=== PATIENT | male | born 1980 | race Caucasian/White ===

== ENCOUNTER 2023-05-18 23:36 | Emergency (ER) | payer SELFPAY ==
[2023-05-18 23:37] VITALS: BP 151/98; PULSE 102; RESP 22; TEMP 38.4; O2SAT 93; BMI 51.7
--- NOTE | 2023-05-18 23:48 | XRR_ITS ---
PROCEDURE INFORMATION: Exam: XR Chest Exam date and time: 05/19/2023 12:20 AM Age: 43 years old Clinical indication: Cough and fever; Patient HX: Semi upright and supine images sent; Additional info: Fever cough TECHNIQUE: Imaging protocol: Radiologic exam of the chest. Views: 1 view. COMPARISON: No relevant prior studies available. FINDINGS: Lungs: There is pulmonary venous distension. No convincing airspace disease. Pleural spaces: No pleural effusion. No pneumothorax. Heart/Mediastinum: Enlarged cardiac silhouette. Bones/joints: Age appropriate. XR/XR chest 1V portable [id number] IMPRESSION: Enlarged cardiac silhouette with pulmonary venous distension. No convincing airspace disease.
[2023-05-18 23:57] LABS: Basophils % 0.5 %; Hematocrit 50.1 % (37-53); Lymphocytes # 1.9 10^3/uL (0.8-4.8); Lymphocytes % 31.4 %; Mean Corpuscular HGB Conc 33.3 g/dL (30-55); Mean Corpuscular Volume 92.9 fl (82-101); Mean Platelet Volume 10.3 fL (7.4-10.4); Monocytes # 0.8 10^3/uL (0.2-0.9); Monocytes % 12.6 %; Neutrophils # 3.32 10^3/uL (1.8-7.7); Neutrophils % 55.2 %; Nucleated Red Blood Cells % 0 %; Platelet Count 283 10^3/cmm (157-399); Red Blood Count 5.39 10^6/uL (3.85-5.65); Red Cell Distribution Width 14.5 % (12.1-15.1); White Blood Count 6.02 10^3/uL (3.29-11.43)
--- NOTE | 2023-05-19 00:11 | ED_ITS ---
HPI - Fever 2 General: Stated Complaint: N/V Time Seen by Provider: 05/18/23 23:48 History of Present Illness: Patient presents to the ER with flulike symptoms. Patient states been going on for about 4 days. Patient's temperature was 100.6 orally is coughing with shortness of breath. He is 93 to 96% on room air. Patient has been around sick contacts his sister and his nephew have influenza A. Patient is taken nothing for his fever. Review of Systems 2 General: Reports: 10 or more systems reviewed and unremarkable except in HPI and below Physical Exam 2 Const: COMMON NORMALS: no acute distress, average body habitus, patient oriented x3, no limitations, healthy appearing, alert and well nourished HENMT: COMMON NORMALS: normocephalic, atraumatic, hearing grossly normal bilaterally, external ears normal, EAC's normal, Normal external nose present, moist oral mucous membranes and oropharynx normal HEAD & SCALP: normocephalic and atraumatic NOSE: Normal external nose present EXTERNAL EAR: Yes external ears normal EXTERNAL AUDITORY CANAL: EAC's normal Neck/C-Spine: COMMON NORMALS: no JVD Chest: COMMONS NORMALS: normal inspection of the chest and normal palpation of entire chest wall Resp: COMMON NORMALS: normal respiratory effort, No retractions, No use of accessory muscles and clear to auscultation bilaterally AUSCULTATION: clear to auscultation bilaterally Cardio: COMMON NORMALS: no JVD, regular rate, regular rhythm, S1 normal heart sound present, S2 normal heart sound present, No gallops present (Cardio), No clicks present (Cardio), No murmurs present (Cardio) and No rub (Cardio) R ATE: regular rate RHYTHM: regular rhythm HEART SOUNDS: S1 normal heart sound present and S2 normal heart sound present GI: COMMON NORMALS: Normal to inspection, nondistended, normoactive bowel sounds present, Soft to palpation, non-tender, No hepatosplenomegaly present and no masses PALPATION: Yes Soft to palpation and Yes No hepatosplenomegaly present Neuro: COMMON NORMALS: patient oriented x3 SENSORIUM/ORIENTATION: Yes alert Course 2 Vital Signs: Vital signs: Vital Signs Temperature 101.2 F H 05/19/23 01:15 Pulse Rate 102 H 05/19/23 01:15 Respiratory Rate 22 H 05/19/23 01:15 Blood Pressure 151/98 05/19/23 01:15 Pulse Oximetry 93 05/19/23 01:15 Oxygen Delivery Me thod Room Air 05/18/23 23:37 MDM - Fever Medical Decision Making Lab work was obtained that included respiratory swabs. Influenza A was positive patient had elevated liver enzyme of AST 123 and ALT 67 patient was given 1 g of Tylenol p.o. for his fever. These results was discussed with the patient. Patient be discharged home. Differential Diagnosis Unlikely abdominal pain, acute appendicitis, calculus of kidney, constipation, diverticulitis, endometriosis, gastroenteritis, pancreatitis or small bowel obstruction Medical Records I reviewed the patient's medical records. Lab Data I reviewed the patient's lab results. 05/18/23 23:35 05/18/23 23:35 Radiology Impressions Chest X-Ray 05/18/23 23:48 IMPRESSION: Enlarged cardiac silhouette with pulmonary venous distension. No convincing airspace disease. Laboratory Results WBC 6.02 10^3/uL (3.29-11.43) 05/18/23 23:35 RBC 5.39 10^6/uL (3.85-5.65) 05/18/23 23:35 Hgb 16.70 g/dL (11.27-16.99) 05/18/23 23:35 Hct 50.1 % (37-53) 05/18/23 23:35 MCV 92.9 fl (82-101) 05/18/23 23:35 MCH 31.0 pg (27-33) 05/18/23 23:35 MCHC 33.3 g/dL (30-55) 05/18/23 23:35 RDW 14.5 % (12.1-15.1) 05/18/23 23:35 Plt Count 283 10^3/cmm (157-399) 05/18/23 23:35 MPV 10.3 fL (7.4-10.4) 05/18/23 23:35 Neut % (Auto) 55.2 % 05/18/23 23:35 Lymph % (Auto) 31.4 % 05/18/23 23:35 [place] % (Auto) 12.6 % 05/18/23 23:35 Eos % (Auto) 0.0 % 05/18/23 23:35 Baso % (Auto) 0.5 % 05/18/23 23:35 Neut # (Auto) 3.32 10^3/uL (1.8-7.7) 05/18/23 23:35 Lymph # (Auto) 1.9 10^3/uL (0.8-4.8) 05/18/23 23:35 [place] # (Auto) 0.8 10^3/uL (0.2-0.9) 05/18/23 23:35 Eos # (Auto) 0.0 10^3/uL (0.0-0.8) 05/18/23 23:35 Baso # (Auto) 0.0 10^3/uL (0.0-0.1) 05/18/23 23:35 Nucleated RBC % (auto) 0 % 05/18/23 23:35 Nucleated RBCs # 0.0 /100WBC 05/18/23 23:35 Sodium 128 mmol/L (136-145) L 05/18/23 23:35 Potassium 4.6 mmol/L (3.5-5.1) 05/18/23 23:35 Chloride 90 mmol/L (98-107) L 05/18/23 23:35 Carbon Dioxide 28 mmol/L (22-29) 05/18/23 23:35 Anion Gap 14.6 (5-19) 05/18/23 23:35 BUN 12 mg/dL (6-20) 05/18/23 23:35 Creatinine 0.8 mg/dL (0.7-1.2) 05/18/23 23:35 GFR Calculation 106.5 mL/min (90-130) 05/18/23 23:35 Glucose 107 mg/dL (65-115) 05/18/23 23:35 Calculated Osmolality 266 mOsm/kg (285-295) L 05/18/23 23:35 Calcium 7.9 mg/dL (8.5-10.5) L 05/18/23 23:35 Total Bilirubin 0.4 mg/dL (0.15-1.2) 05/18/23 23:35 AST 123 U/L (0-40) H 05/18/23 23:35 ALT 67 U/L (0-41) H 05/18/23 23:35 Alkaline Phosphatase 93 U/L (40-130) 03/01/24 23:35 Total Protein 7.5 g/dL (6.6-8.7) 05/18/23 23:35 Albumin 3.4 g/dL (3.5-5.2) L 05/18/23 23:35 Globulin 4.1 g/dL (1.3-4.6) 05/18/23 23:35 Influenza Type A Ag positive (Negative) H 05/19/23 00:05 Influenza Type B Ag negative (Negative) 05/19/23 00:05 SARS-CoV-2 Ag (Rapid) negative (Negative) 05/19/23 00:05 All radiology interpretation(s) finalized by discharge Discharge Plan Discharge Patient Disposition: Home Clinical Impression: Influenza A, Elevated liver enzymes Fever Qualifiers: Fever type: unspecified Qualified Code(s): R50.9 - Fever, unspecified Condition: Stable Discharge Orders: Discharge ED (Routine); Ordered 05/19/23 Ordered By: Rmaón Block Patient Instructions: Fever - Adult, Influenza (ED) Activity Restrictions/Additional Instructions: Your results in ER came back positive for influenza A and elevated liver enzymes. Please continue take Tylenol and Motrin [id number] as directed for your fever and bodyaches. Please follow-up with your family practice physician within the next 7 days to have your liver rechecked. Coding Level of Care Code ED Canopy Inspector for Brando Alexander
[2023-05-19 00:22] LABS: Alanine Aminotransferase 67 U/L (0-41); Albumin Level 3.4 g/dL (3.5-5.2); Alkaline Phosphatase 93 U/L (40-130); Anion Gap 14.6 (5-19); Aspartate Amino Transferase 123 U/L (0-40); Blood Urea Nitrogen 12 mg/dL (6-20); Calcium 7.9 mg/dL (8.5-10.5); Carbon Dioxide 28 mmol/L (22-29); Chloride 90 mmol/L (98-107); Creatinine Clr Calc Pharmacy 176.5644; Globulin 4.1 g/dL (1.3-4.6); Glomerular Filtration Rate 106.5 mL/min (90-130); Glucose 107 mg/dL (65-115); Osmolality Calculated 266 mOsm/kg (285-295); Potassium 4.6 mmol/L (3.5-5.1); Sodium 128 mmol/L (136-145); Total Bilirubin 0.4 mg/dL (0.15-1.2); Total Protein 7.5 g/dL (6.6-8.7)
[2023-05-19] MEDS: acetaminophen 500 mg Tablet 1000 MG PO (00:30)
[2023-05-19 00:50] LABS: Influenza A by IFA positive (Negative); Influenza B by IFA negative (Negative); SARS Covid-2 Antigen negative (Negative)
[2023-05-19 01:15] VITALS: BP 151/98; PULSE 102; RESP 22; TEMP 38.4; O2SAT 93
== END 2023-05-19 01:16 | disposition home or self-care (01) ==
PROVIDERS: Emergency Provider Emergency Medicine
DX: J10.1 Influenza due to other identified influenza virus with other respiratory manifestations (principal); R74.8 Abnormal levels of other serum enzymes; Z11.52 Encounter for screening for COVID-19
CPT/HCPCS: 71045; 80053; 85025; 87426; 87804; 99284

== ENCOUNTER → 2025-02-10 11:42 | Outpatient (BNVA) | payer BC, SELFPAY | PROVIDERS: PCP Nurse Practitioner Family; Visit Provider Nurse Practitioner Family | DX: R30.0 Dysuria (principal); I10 Essential (primary) hypertension; E66.01 Morbid (severe) obesity due to excess calories; F10.21 Alcohol dependence, in remission | CPT/HCPCS: 80053; 80061; 82247; 82248; 85025; G0103 ==

== ENCOUNTER 2025-02-18 17:05 | Emergency (ER) | payer BC, MEDICAID, SELFPAY ==
[2025-02-18 17:10] VITALS: BP 130/82; PULSE 78; RESP 17; TEMP 36.3; O2SAT 93; BMI 54.7
--- NOTE | 2025-02-18 17:26 | PC.NURSE ---
pt provided with urinal, educated on need for UA. pt states might be awhile, but he will pee
[2025-02-18 17:33] VITALS: BP 136/86
--- NOTE | 2025-02-18 17:33 | USR_ITS ---
PROCEDURE INFORMATION: Exam: US Scrotum Exam date and time: 02/18/2025 5:45 PM Age: 44 years old Clinical indication: Scrotum pain TECHNIQUE: Imaging protocol: Real-time ultrasound of the scrotum and contents with color Doppler and image documentation. COMPARISON: No relevant prior studies available. FINDINGS: Limitations: Technologist notes technically difficult study due to extreme body habitus and patient movement. Unable to obtain both testicles in the same view due to body habitus/movement. Right testicle: Right testicle measures 3.7 x 2.3 x 3.3 cm with a volume of 14.6 mL. Homogeneous echotexture without nodule or mass. Right testicular arterial and venous flow is seen. Left testicle: Left testicle measures 4.1 x 2.8 x 3.3 cm with a volume 19.7 mL. Homogeneous echotexture without nodule or mass. Left testicular arterial and venous flow is seen. Epididymides: Right epididymis measures 1.7 x 1.2 x 1.7 cm and demonstrates heterogeneous echotexture. Mild increased flow. A 1.3 x 1 x 1 cm anechoic focus is seen adjacent to the right testicle. Left epididymis measures 1.6 x 1.4 x 1.6 cm and demonstrates heterogeneous echotexture with anechoic focus of 1.3 x 0.8 x 1.3 cm. Scrotum/soft tissues: No hydrocele. US/US scrotum [id number] IMPRESSION: 1. Testicles appear unremarkable bilaterally and with bilateral testicular flow. 2. Bilateral cystic foci in association with the epididymis or adjacent to the testicle could indicate epididymal cyst or spermatocele. 3. Mildly prominent and mildly heterogeneous epididymides and considered the possibility of epididymitis. 4. No hydrocele.
[2025-02-18 17:43] LABS: Hematocrit 51.6 % (37-53); Hemoglobin 17.30 g/dL (11.27-16.99); Mean Corpuscular HGB Conc 33.5 g/dL (30-55); Mean Corpuscular Hemoglobin 31.3 pg (27-33); Mean Corpuscular Volume 93.3 fl (82-101); Nucleated Red Blood Cells % 0 %; Platelet Count 229 10^3/cmm (157-399); Red Blood Count 5.53 10^6/uL (3.85-5.65); White Blood Count 7.14 10^3/uL (3.29-11.43)
[2025-02-18 17:56] LABS: Alanine Aminotransferase 32 U/L (0-41); Albumin Level 3.8 g/dL (3.5-5.2); Alkaline Phosphatase 86 U/L (40-130); Anion Gap 12.7 (5-19); Aspartate Amino Transferase 33 U/L (0-40); Blood Urea Nitrogen 14 mg/dL (6-20); Calcium 9.0 mg/dL (8.5-10.5); Carbon Dioxide 27 mmol/L (22-29); Chloride 103 mmol/L (98-107); Globulin 3.8 g/dL (1.3-4.6); Glucose 110 mg/dL (65-115); Osmolality Calculated 287 mOsm/kg (285-295); Potassium 4.7 mmol/L (3.5-5.1); Sodium 138 mmol/L (136-145); Total Protein 7.6 g/dL (6.6-8.7)
--- NOTE | 2025-02-18 17:57 | ED_ITS ---
HPI - Male Genitourinary 2 General: Chief complaint: Urogenital-Male Stated complaint: Flank/abd pain Time Seen by Provider: 02/18/25 17:06 History of Present Illness: 44-year-old male presents emergency room with complaints of dysuria and testicular pain. The testicular pain has been going on for a year he was seen earlier in the week at [facility] and started on oral antibiotics for bladder infection he insisted to the jailers that he be reevaluated. Fever sweats chills no vomiting or diarrhea. Associated symptoms: Reports dysuria Related Data Previous Rx's ?Medication ?Instructions ?Recorded lisinopril 20 mg tablet 20 mg PO DAILY #30 tabs 01/18 08/10 diclofenac sodium 75 mg 75 mg PO Q12H PRN pain #20 t abs 02/18/25 tablet,delayed release Allergies Allergy/AdvReac Type Severity Reaction Status Date / Time No Known Allergies Allergy Verified 02/10/25 11:16 Review of Systems 2 Const: Denies: fever(s) or chills Card: Denies: chest pain Resp: Denies: dyspnea GI: Reports: abdominal pain : Reports: flank pain, dysuria, urinary frequency, urinary urgency and testicular pain Musc: Denies: neck pain or back pain Skin/Breast: Denies: rash PFSH ED 2 PFSH: Social History Smoking and tobacco/nicotine status: never used tobacco/nicotine Alcohol intake: former Substance/Drug Use: former Physical Exam 2 Const: GENERAL APPEARANCE: cooperative ORIENTATION/CONSCIOUSNESS: Yes awake, Yes oriented to person, Yes oriented to place and Yes oriented to time HENMT: COMMON NORMALS: normocephalic, atraumatic and hearing grossly normal bilaterally HEAD & SCALP: normocephalic and atraumatic Resp: COMMON NORMALS: normal respiratory effort, No retractions, No use of accessory muscles and clear to auscultation bilaterally AUSCULTATION: clear to auscultation bilaterally Cardio: COMMON NORMALS: regular rate, regular rhythm and No murmurs present (Cardio) RATE: regular rate RHYTHM: regular rhythm GI: COMMON NORMALS: Soft to palpation and No hepatosplenomegaly present A USCULTATION: Yes normoactive bowel sounds PALPATION: Yes Soft to palpation, No Tenderness to palpation present (GI), No Guarding due to palpation present (GI) and Yes No hepatosplenomegaly present Extremity: COMMON NORMALS: normal to inspection, capillary refill normal, no clubbing, cyanosis or edema, no calf tenderness and no pedal edema Neuro: SENSORIUM/ORIENTATION: Yes oriented to person, Yes oriented to place and Yes oriented to time Skin: COMMON NORMALS: no rashes or lesions noted GENERAL SKIN EXAM: no rashes or lesions noted Course 2 Vital Signs: Vital signs: Vital Signs Temperature 97.4 F L 02/18/25 17:10 Pulse Rate 96 02/18/25 19:46 Respiratory Rate 17 02/18/25 17:10 Blood Pressure 140/84 02/18/25 19:46 Pulse Oximetry 96 02/18/25 19:46 Oxygen Delivery Me thod Room Air 02/18/25 17:10 MDM - Male Medical Decision Making Medical decision making Social determinants: None I reviewed the patient's medical record. I reviewed the patient's current home meds. Alternate historians: None Differential diagnosis: Cystitis epididymitis testicular torsion Lab Review: CBC normal chemistry panel no significant abnormalities urine shows trace leukocyte esterase 6-10 white and 6-10 epithelial cells. Imaging: Scrotal ultrasound shows epididymitis Assessment of risk Level of risk: Low Hospitalization considerations: No indication for hospitalization Reexamination: Improved Assessment and plan: Patient previously prescribed ciprofloxacin at a visit at another facility. Recommend he continues and completes a course of ciprofloxacin can use Tylenol or ibuprofen for pain and follow-up with his primary care doctor Lab Data 02/18/25 17:19 02/18/25 17:19 Radiology Impressions Scrotum Ultrasound 02/18/25 17:33 IMPRESSION: 1. Testicles appear unremarkable bilaterally and with bilateral testicular flow. 2. Bilateral cystic foci in association with the epididymis or adjacent to the testicle could indicate epididymal cyst or spermatocele. 3. Mildly prominent and mildly heterogeneous epididymides and considered the possibility of epididymitis. 4. No hydrocele. Laboratory Results WBC 7.14 10^3/uL (3.29-11.43) 02/18/25 17:19 RBC 5.53 10^6/uL (3.85-5.65) 02/18/25 17:19 Hgb 17.30 g/dL (11.27-16.99) H 02/18/25 17:19 Hct 51.6 % (37-53) 02/18/25 17:19 MCV 93.3 fl (82-101) 02/18/25 17:19 MCH 31.3 pg (27-33) 02/18/25 17:19 MCHC 33.5 g/dL (30-55) 02/18/25 17:19 RDW 13.8 % (12.1-15.1) 02/18/25 17:19 Plt Count 229 10^3/cmm (157-399) 02/18/25 17:19 MPV 11.2 fL (7.4-10.4) H 02/18/25 17:19 Neut % (Auto) 47.0 % 02/18/25 17:19 Lymph % (Auto) 33.6 % 02/18/25 17:19 [place] % (Auto) 13.6 % 02/18/25 17:19 Eos % (Auto) 4.9 % 02/18/25 17:19 Baso % (Auto) 0.8 % 02/18/25 17:19 Neut # (Auto) 3.35 10^3/uL (1.8-7.7) 02/18/25 17:19 Lymph # (Auto) 2.4 10^3/uL (0.8-4.8) 02/18/25 17:19 [place] # (Auto) 1.0 10^3/uL (0.2-0.9) H 02/18/25 17:19 Eos # (Auto) 0.4 10^3/uL (0.0-0.8) 02/18/25 17:19 Baso # (Auto) 0.1 10^3/uL (0.0-0.1) 02/18/25 17:19 Nucleated RBC % (auto) 0 % 02/18/25 17:19 Nucleated RBCs # 0.0 /100WBC 02/18/25 17:19 Sodium 138 mmol/L (136-145) 02/18/25 17:19 Potassium 4.7 mmol/L (3.5-5.1) 02/18/25 17:19 Chloride 103 mmol/L (98-107) 02/18/25 17:19 Carbon Dioxide 27 mmol/L (22-29) 02/18/25 17:19 Anion Gap 12.7 (5-19) 02/18/25 17:19 BUN 14 mg/dL (6-20) 02/18/25 17:19 Creatinine 0.7 mg/dL (0.7-1.2) 02/18/25 17:19 GFR Calculation 123.7 mL/min (90-130) 02/18/25 17:19 Glucose 110 mg/dL (65-115) 02/18/25 17:19 Calculated Osmolality 287 mOsm/kg (285-295) 02/18/25 17:19 Calcium 9.0 mg/dL (8.5-10.5) 02/18/25 17:19 Total Bilirubin 0.5 mg/dL (0.15-1.2) 02/18/25 17:19 AST 33 U/L (0-40) 02/18/25 17:19 ALT 32 U/L (0-41) 02/18/25 17:19 Alkaline Phosphatase 86 U/L (40-130) 02/18/25 17:19 Total Protein 7.6 g/dL (6.6-8.7) 02/18/25 17:19 Albumin 3.8 g/dL (3.5-5.2) 02/18/25 17:19 Globulin 3.8 g/dL (1.3-4.6) 02/18/25 17:19 Urine Color [place] (Yellow) A 02/18/25 18: Urine Appearance Cloudy (CLEAR) A 02/18/25 18: Urine pH 5.5 (5-7) 02/18/25 18: Ur Specific [place] 1.040 (1.005-1.030) H 02/18/25 18: Urine Protein 1+ (Negative) A 02/18/25 18: Urine Glucose (UA) Negative (Normal) 02/18/25 18: Urine Ketones Trace (Negative) 02/18/25 18: Urine Blood Negative (Negative) 02/18/25 18: Urine Nitrate Negative (Negative) 02/18/25 18: Urine Bilirubin 1+ (Negative) H 02/18/25 18: Urine Urobilinogen 2.0 mg/dL (Negative) H 02/18/25 18:29 Ur Leukocyte Esterase Trace (Negative) A 02/18/25 18:29 Urine RBC 0-2 /hpf (0-2) 02/18/25 18:29 Urine WBC 6-10 /hpf (0-5) 02/18/25 18:29 Ur Squamous Epith Cells 6-10 /hpf (0-5) 02/18/25 18:29 Amorphous Sediment Not Reportable 02/18/25 18:29 Urine Bacteria None seen /hpf (NONE) 02/18/25 18:29 Hyaline Casts 28.94 /lpf 02/18/25 18:29 All radiology interpretation(s) finalized by discharge Discharge Plan Discharge Patient Disposition: Home Clinical Impression: Epididymitis Condition: Stable Prescriptions: New diclofenac sodium 75 mg tablet,delayed release (DR/EC) 75 mg PO Q12H PRN (Reason: pain) Qty: 20 0RF No Action lisinopril 20 mg tablet 20 mg PO DAILY Qty: 30 3RF Discharge Orders: Discharge ED (Routine); Ordered 02/18/25 Ordered By: Jasvir Dumont Referrals: Alfonso Parada FNP [Primary Care Provider, Family Practice] Discharge Diet: Usual diet Discharge Activity: Resume usual activity Patient Instructions: Opioid Safety, Pain Management, Patient Portal & Marisela Instructions Activity Restrictions/Additional Instructions: Thank you for choosing [facility] for your healthcare needs today. It is very important that you follow up as instructed or that you return to the Emergency Department should you have concerns or if your condition changes or worsens in any way. Emergency department visits are focused on emergent conditions, in some cases you may require further evaluation on an outpatient basis. You are seen emergency room with complaint of testicular pain ultrasound shows an epididymitis. You should continue the previously prescribed ciprofloxacin. Your urine was otherwise unremarkable and your white count was normal. No other findings noted on the ultrasound of the scrotum. You can also use diclofenac 1 every 12 hours as needed for discomfort. (Please note that included in your discharge packet is information concerning opioid safety and pain management. This information is given to all patients were discharged from the ER regardless of their discharge diagnosis or the medicines they usually take or are prescribed.) Print Language: Monegasque Coding Level of Care Code ED Medical Doctor Nuclear Medicine for Brando Alexander
[2025-02-18 18:42] LABS: Glucose Urine UA Negative (Normal); Nitrate Urine Negative (Negative)
[2025-02-18 18:54] LABS: Universal Test for UA Present (0)
[2025-02-18 18:57] LABS: Specific Gravity, Urine 1.040 (1.005-1.030)
[2025-02-18 18:58] LABS: Add Urine Microscopic? YES; Charge for UA Resulting for Rev
[2025-02-18 19:46] VITALS: BP 140/84; PULSE 96; O2SAT 96
== END 2025-02-18 19:51 | disposition home or self-care (01) ==
PROVIDERS: Emergency Provider Family Medicine; PCP Nurse Practitioner Family
DX: N45.1 Epididymitis (principal)
CPT/HCPCS: 36415; 76870; 80053; 81001; 81003; 85025; 99284

== ENCOUNTER 2025-03-08 15:47 | Emergency (ER) | payer BC, MEDICAID, SELFPAY ==
[2025-03-08 15:51] VITALS: BP 129/87; PULSE 101; RESP 20; TEMP 36.8; O2SAT 95; BMI 56.2
[2025-03-08 16:48] LABS: Glucose Urine UA 1+ (Normal); Nitrate Urine Negative (Negative)
[2025-03-08 16:51] LABS: Add Urine Microscopic? YES
[2025-03-08 17:11] LABS: Specific Gravity, Urine 1.031 (1.005-1.030)
--- NOTE | 2025-03-08 17:24 | W.ED.MALEGU ---
HPI - Male Genitourinary General: Chief complaint: Urogenital-Male Stated complaint: L side above Groan lump painful Time Seen by Provider: 03/08/25 16:33 History of Present Illness: Patient is a 44-year-old gentleman that comes in with a left groin abscess. This occurred after he was retained in [facility] for 2 days, and has worsened. He was seen at [facility], and was told he had a UTI, however where he was in the local [facility] they did not treat him. He has since been released to recovery program, and the area to his left groin has increased in size, and has associated pain, and purulent drainage. Associated symptoms: Reports dysuria Related Data Previous Rx's ?Medication ?Instructions ?Recorded lisinopril 20 mg tablet 20 mg PO DAILY #30 tabs 02/10/25 diclofenac sodium 75 mg 75 mg PO Q12H PRN pain #20 tabs 02/18/25 tablet,delayed release sulfamethoxazole 800 2 tab PO Q12H 10 days #40 tabs 03/08/25 mg-trimethoprim 160 mg tablet (Bactrim DS) Allergies Allergy/AdvReac Type Severity Reaction Status Date / Time No Known Allergies Allergy Verified 02/10/25 11:16 Review of Systems Const: Denies: fever(s) or chills Card: Denies: chest pain Resp: Denies: dyspnea GI: Reports: abdominal pain : Reports: flank pain, dysuria, urinary frequency, urinary urgency and testicular pain Musc: Denies: neck pain or back pain Skin/Breast: Denies: rash Neuro: Reports: headache(s) and numbness in extremities PFSH ED PFSH: Social History Smoking and tobacco/nicotine status: never used tobacco/nicotine Alcohol intake: former Substance/Drug Use: former Physical Exam Const: GENERAL APPEARANCE: cooperative ORIENTATION/CONSCIOUSNESS: Yes awake, Yes oriented to person, Yes oriented to place and Yes oriented to time HENMT: COMMON NORMALS: normocephalic, atraumatic and hearing grossly normal bilaterally HEAD & SCALP: normocephalic and atraumatic Lymph: LYMPHATIC: no lymphadenopathy noted Resp: COMMON NORMALS: normal respiratory effort, No retractions, No use of accessory muscles and clear to auscultation bilaterally AUSCULTATION: clear to auscultation bilaterally Cardio: COMMON NORMALS: regular rate, regular rhythm and No murmurs present (Cardio) RATE: regular rate RHYTHM: regular rhythm GI: COMMON NORMALS: Soft to palpation and No hepatosplenomegaly present AUSCULTATION: Yes normoactive bowel sounds PALPATION: Yes Soft to palpation, No Tenderness to palpation present (GI), No Guarding due to palpation present (GI) and Yes No hepatosplenomegaly present : COMMON NORMALS: Yes no CVA tenderness, Yes normal external exam and Yes Testes normal BLADDER/KIDNEY EXAM: Yes no CVA tenderness OTHER: Pannus, lower left groin, with induration, abscess area. There is surrounding redness extending through the lower pannus. His testicle and penis is spared. Back/Pelvis: COMMON NORMALS: no CVA tenderness Extremity: COMMON NORMALS: normal to inspection, capillary refill normal, no clubbing, cyanosis or edema, no calf tenderness and no pedal edema Neuro: SENSORIUM/ORIENTATION: Yes oriented to person, Yes oriented to place and Yes oriented to time Skin: COMMON NORMALS: no rashes or lesions noted GENERAL SKIN EXAM: no rashes or lesions noted Procedures Abscess I/D Site: abdomen Side (if applicable): left (groin, pannis) Sedation/analgesia: other Local Anesthetic: lidocaine 1% and with epi Amount of anesthesia used (mL): 10 Technique: incised with #11 blade Amount of fluid expressed (mL): 10 Irrigation: Yes Packing used?: none Complications: pain and bleeding Course Vital Signs: Vital signs: Vital Signs Temperature 98.3 F 03/08/25 15:51 Pulse Rate 104 H 03/08/25 17:26 Respiratory Rate 18 03/08/25 17:26 Blood Pressure 119/87 03/08/25 17:26 Pulse Oximetry 98 03/08/25 17:26 Oxygen Delivery Me thod Room Air 03/08/25 17:26 MDM - Male Medical Decision Making Patient is 44-year-old male comes in with abscess to left groin. This was drained and purulent production was received. This was a small amount of purulent production. All the area was probed. Plain gauze was unable to insert due to the small amount of area. There was surrounding redness to his lower pannus. Discussed with patient if this gets worse to return to the ED. He received Rocephin x 1 here, and MRSA coverage with Bactrim. Patient states understanding of groin care. Medical Records I reviewed the patient's medical records. Lab Data Laboratory Results Urine Color Dark yellow (Yellow) A 03/08/25 16:42 Urine Appearance Clear (CLEAR) 03/08/25 16:42 Urine pH 6.0 (5-7) 03/08/25 16:42 Ur Specific [place] 1.031 (1.005-1.030) H 03/08/25 16:42 Urine Protein 1+ (Negative) A 03/08/25 16:42 Urine Glucose (UA) 1+ (Normal) H 03/08/25 16:42 Urine Ketones Trace (Negative) 03/08/25 16:42 Urine Blood Negative (Negative) 03/08/25 16:42 Urine Nitrate Negative (Negative) 03/08/25 16:42 Urine Bilirubin Negative (Negative) 03/08/25 16:42 Urine Urobilinogen 1.0 mg/dL (Negative) 03/08/25 16:42 Ur Leukocyte Esterase Negative (Negative) 03/08/25 16:42 Urine RBC 0-2 /hpf (0-2) 03/08/25 16:42 Urine WBC 0-5 /hpf (0-5) 03/08/25 16:42 Ur Squamous Epith Cells 0-5 /hpf (0-5) 03/08/25 16:42 Amorphous Sediment Not Reportable 03/08/25 16:42 Urine Bacteria Trace /hpf (NONE) 03/08/25 16:42 Hyaline Casts 11.57 /lpf 03/08/25 16:42 No radiology studies performed this visit Discharge Plan Discharge Patient Disposition: Home Clinical Impression: Abscess of groin, left Condition: Stable Prescriptions: New sulfamethoxazole-trimethoprim [Bactrim DS] 800-160 mg tablet 2 tab PO Q12H 10 Days Qty: 40 0RF No Action lisinopril 20 mg tablet 20 mg PO DAILY Qty: 30 3RF diclofenac sodium 75 mg tablet,delayed release (DR/EC) 75 mg PO Q12H PRN (Reason: pain) Qty: 20 0RF Discharge Orders: Discharge ED (Routine); Ordered 03/08/25 Ordered By: Vanessa Saunders Referrals: Alfonso Parada FNP [Primary Care Provider, Family Practice] Discharge Diet: Usual diet Discharge Activity: Resume usual activity Patient Instructions: Abscess (ED), Patient Portal & [facility] Instructions Activity Restrictions/Additional Instructions: - You received a shot of Rocephin and your muscle here At the pharmacy: Bactrim double strength. You take 2 at once twice daily. Take a probiotic or eat active culture yogurt to avoid infectious diarrhea - Wash this area daily cover. Antibacterial soap is important. The area has been probed for abscess after draining, and no additional pocket was found. - As we discussed: Sometimes these get worse and reddened, despite antibiotics, and the incision and drainage. If this happens, return to ED. - You are cleared to go back to the home you were in -I am glad you are doing well staying sober. Keep up the good work! Thank you for choosing [facility] for your healthcare needs today. You have been screened and evaluated and felt safe for discharge. Health conditions do change or evolve sometimes and as such it is important that you follow up with your Primary Doctor to be re checked, 3-5 days is a general good time frame for follow up. You are always welcome to return to the ED for re assessment if your symptoms are worsening or you have new concerns Print Language: Nigerian Coding Level of Care Code ED [employer] Person for Brando Alexander
[2025-03-08] MEDS: lidocaine-epi 1% 20 mL INJ INJECTION (17:25)
[2025-03-08 17:26] VITALS: BP 119/87; PULSE 104; RESP 18; O2SAT 98
== END 2025-03-08 18:27 | disposition home or self-care (01) ==
PROVIDERS: Emergency Provider Physician Assistant; PCP Nurse Practitioner Family
DX: L02.214 Cutaneous abscess of groin (principal)
CPT/HCPCS: 10060; 81001; 99284; J0696; J9999